=== PATIENT | male | born 1955 | race Caucasian/White ===

== ENCOUNTER 2017-01-05 20:13 | Emergency (ER) | payer BC ==
[~2017-01-05] VITALS: Ht 177.8 cm; Wt 79.4 kg
--- NOTE | 2017-01-05 21:19 | NUR ---
DR RODRIGUEZ AT BEDSIDE FOR EVAL.
--- NOTE | 2017-01-05 21:26 | NUR ---
IV LINE STARTED BLOOD DRAWN AND SENT TO LAB.
[2017-01-05] MEDS ORDERED: ONDANSETRON HCL/PF 4 MG/2 ML VIAL ONE (21:29)
[2017-01-05] MEDS ORDERED: ONDANSETRON HCL/PF 4 MG/2 ML VIAL IVP ONE (21:30)
[2017-01-05] MEDS ORDERED: IV NS 0.9% 1,000 ML BAG IV ONE (21:30)
[2017-01-05] MEDS ORDERED: HYDROMORPHONE INJ 2 MG/ML DISP.SYRIN IV ONE (21:30)
[2017-01-05] MEDS ORDERED: HYDROMORPHONE 1 MG/1 ML DISP.SYRIN ONE (21:31)
--- NOTE | 2017-01-05 21:34 | NUR ---
RADIOLOGY AT BEDSIDE FOR CHEST XRAY.
[2017-01-05 21:39] LABS: APPEARANCE,URINE Clear (CLEAR); BILIRUBIN,URINE Negative (NEGATIVE); BLOOD, URINE Moderate Ery/uL (NEGATIVE); COLOR,URINE Yellow (YELLOW); KETONES,URINE Negative (NEGATIVE); LEUKOCYTE ESTERASE ,URINE Small (NEGATIVE); NITRITE, URINE Negative (NEGATIVE); PROTEIN,URINE 100 mg/dl (NEGATIVE); UGLUCOSE Negative (NEGATIVE); UROBILINOGEN,URINE 0.2 EU/dL (0.2)
[2017-01-05 21:44] LABS: CALCIUM, SERUM 8.7 mg/dL (8.5-10.1); CARBON DIOXIDE 27 mmol/L (21-32); CHLORIDE 106 mmol/L (98-107); CREATININE 1.1 mg/dL (0.6-1.3); GLUCOSE 122 mg/dL (74-106); POTASSIUM 3.7 mmol/L (3.5-5.1); SODIUM SERUM 141 mmol/L (136-145); UREA NITROGEN, BLOOD 27 mg/dL (7-18)
[2017-01-05 21:48] LABS: INR 0.95 (0.87-1.13); PROTHROMBIN TIME 9.9 SECS (9.5-12.7)
[2017-01-05 21:50] LABS: ALANINE AMINOTRANSFERASE 32 U/L (12-78); ALBUMIN 3.9 g/dL (3.4-5.0); ALKALINE PHOSPHATASE 69 U/L (46-116); ASPARTATE AMINOTRANSFERASE 21 U/L (15-37); BILIRUBIN,DIRECT 0.3 mg/dL (0.0-0.2); BILIRUBIN,TOTAL 1.5 mg/dL (0.2-1.0); LIPASE 178 U/L (73-393); TOTAL PROTEIN, SERUM 7.3 g/dL (6.4-8.2)
[2017-01-05 21:50] LABS: BACTERIA,URINE Few /HPF (None Seen); RBC,URINE 21-50 /HPF (0-2)
[2017-01-05 21:51] LABS: SQUAMOUS EPITHELIAL CELL,UR Few /HPF (None Seen)
[2017-01-05 21:52] LABS: TROPONIN I < 0.017 ng/mL (0.00-0.056)
[2017-01-05 22:00] LABS: BASOPHILS # (AUTO) 0.1 /CMM (0.0-0.2); EOSINOPHILS # (AUTO) 0.2 /CMM (0.0-0.7); EOSINOPHILS % (AUTO) 2.1 % (0.0-6.0); HEMATOCRIT 43 % (39-51); HEMOGLOBIN 13.4 g/dL (13.5-17.5); LYMPHOCYTES # (AUTO) 1.2 /CMM (0.8-4.8); LYMPHOCYTES % (AUTO) 14.4 % (20.0-44.0); MEAN CORPUSCULAR HEMOGLOBIN 20 PG (26.0-33.0); MEAN CORPUSCULAR HGB CONC 31 g/dl (31.0-36.0); MEAN CORPUSCULAR VOLUME 64 fL (80-96); MONOCYTES # (AUTO) 0.7 /CMM (0.1-1.30); MONOCYTES % (AUTO) 8.3 % (2.0-12.0); NEUTROPHILS # (AUTO) 6.4 /CMM (1.8-8.9); NEUTROPHILS % (AUTO) 74.2 % (43.0-81.0); PLATELET COUNT (AUTO) 280 /CMM (150-450); RED BLOOD CELL COUNT(AUTO) 6.63 MIL/uL (4.5-6.0); WHITE BLOOD COUNT (AUTO) 8.6 K/uL (4.3-11.0)
--- NOTE | 2017-01-05 22:00 | NUR ---
DR BLAKE AT BEDSIDE FOR EVAL.
--- NOTE | 2017-01-05 22:49 | NUR ---
U/S TECH AT BEDSIDE FOR GALLBLADDER ULTRASOUND.
[2017-01-05] MEDS ORDERED: LEVOFLOXACIN 750 MG /D5W 150ML 150 ML IV ONE (22:51)
[2017-01-05] MEDS ORDERED: MORPHINE SULFATE INJ 10 MG/ML DISP.SYRIN ONE (22:51)
[2017-01-05] MEDS ORDERED: MORPHINE SULFATE INJ 2 MG/ML DISP.SYRIN IV ONE (23:00)
[2017-01-05] MEDS ORDERED: LEVOFLOXACIN 750 MG /D5W 150ML PIGGYBACK IV ONE (23:00)
[2017-01-05 23:02] LABS: EOSINOPHILS % (MANUAL) 3 % (0-4); LYMPHOCYTES % (MANUAL) 16 % (16-48); MONOCYTES % (MANUAL) 7 % (0-11.0); NEUTROPHILS % (MANUAL) 74 (42-76)
[2017-01-06] MEDS ORDERED: ONDANSETRON HCL/PF 4 MG/2 ML VIAL ONE (00:02)
--- NOTE | 2017-01-06 00:28 | NUR ---
Patient discharged to home in stable condition. Written and verbal after care instructions given. Patient verbalizes understanding of instruction.IV removed. Catheter intact and site benign. Pressure and 4x4 applied to site. No bleeding noted.
[2017-01-06 00:29] VITALS: BP 130/84
[2017-01-06] MEDS ORDERED: ONDANSETRON HCL/PF 4 MG/2 ML VIAL IV ONE (00:30)
== END 2017-01-06 00:30 | disposition home or self-care (01) ==
LOC: ER 20:16
DX: N30.90 Cystitis, unspecified without hematuria (principal); N41.9 Inflammatory disease of prostate, unspecified; N40.0 Benign prostatic hyperplasia without lower urinary tract symptoms; Z90.79 Acquired absence of other genital organ(s)
CPT/HCPCS: 36415; 71010; 74176; 76705; 80048; 80076; 81001; 83690; 84484; 85025; 85730; 87086; 93005; 96365; 96375; 96376; 99285; A4606; J1170; J1956; J2270; J2405 ×2; J7030; 81000-TC; Z7610